=== PATIENT | female | born 1970 | race Caucasian/White ===

== ENCOUNTER 2021-08-26 12:52 | Outpatient (CLI) | payer SELFPAY ==
--- NOTE | 2021-08-27 13:16 | XRAY Report ---
PROCEDURE: Ankle 3 View LT INDICATIONS: LEFT ANKLE PAIN TECHNIQUE: 3 views of the ankle were acquired. COMPARISON: None FINDINGS: Bones: No fractures or dislocations. Ankle mortise is normally aligned. No suspicious bony lesions . Soft tissues: No tibiotalar joint effusion. Achilles tendon appears normal. IMPRESSION: Unremarkable left ankle radiographs Reviewed by: Milan Seth MD on 08/27/2021 12:15 PM [facility] Approved by: Milan Seth MD on 08/27/2021 12:15 PM [facility] Station ID: [id number]
== END 2021-08-26 23:59 | disposition home or self-care (01) ==
LOC: DI.N 12:52
PROVIDERS: ATTEND Physician Assistant Medical
DX: S93.402A Sprain of unspecified ligament of left ankle, initial encounter (principal)

== ENCOUNTER 2022-09-04 08:00 | Outpatient (CLI) | payer MEDICAID ==
--- NOTE | 2022-09-04 17:45 | XRAY Report ---
PROCEDURE: Shoulder 2 View RT INDICATIONS: R SHOULDER PX TECHNIQUE: 2 views of the shoulder were acquired. COMPARISON: None. FINDINGS: Bones: No fractures or dislocations. No suspicious bony lesions. Visualized ribs appear intact. Soft tissues: No suspicious soft tissue calcifications. Right axillary resection clips. IMPRESSION: No evidence acute bony abnormality of the right shoulder. If clinical suspicion and/or symptoms persist, further assessment with repeat plain films or advanced imaging (e.g., CT, MRI, or bone scan) may be helpful for further assessment. Reviewed by: Iker Martinez MD on 09/04/2022 5:44 PM PST Approved by: Iker Martinez MD on 09/04/2022 5:44 PM PST Station ID: [id number]
== END 2022-09-04 23:59 | disposition home or self-care (01) ==
LOC: DI.N 08:00
PROVIDERS: ATTEND Nurse Practitioner
DX: M25.511 Pain in right shoulder (principal)

== ENCOUNTER 2023-06-10 12:00 | Outpatient (CLI) | payer MEDICAID ==
[2023-06-10 18:47] LABS: BASOPHILS % (AUTO) 0.4 %; EOSINOPHILS # (AUTO) 0.3 10^3/uL (0.0-0.7); EOSINOPHILS % (AUTO) 3.1 %; HCT - HEMATOCRIT 41.9 % (37.0-47.0); HGB - HEMOGLOBIN 13.6 g/dL (12.0-16.0); LYMPHOCYTES # (AUTO) 1.8 10^3/uL (1.5-3.5); LYMPHOCYTES % (AUTO) 19.2 %; MEAN CORPUSCULAR HEMOGLOBIN 29.1 pg (27.0-31.0); MEAN CORPUSCULAR HGB CONC 32.5 g/dL (32.0-36.0); MEAN CORPUSCULAR VOLUME 89.7 fL (81.0-99.0); MEAN PLATELET VOLUME 10.1 fL (7.9-10.8); MONOCYTES # (AUTO) 0.6 10^3/uL (0.0-1.0); NEUTROPHILS # (AUTO) 6.6 10^3/uL (1.5-6.6); NEUTROPHILS % (AUTO) 70.9 %; PLT - PLATELET COUNT 321 10^3/uL (130-450); RED BLOOD COUNT 4.67 10^6/uL (4.20-5.40); RED CELL DISTRIBUTION WIDTH 12.2 % (12.0-15.0); WHITE BLOOD COUNT 9.3 x10^3/uL (4.8-10.8)
[2023-06-10 18:49] LABS: ALBUMIN 4.3 g/dL (3.2-5.5); ALBUMIN/GLOBULIN RATIO 1.6 (1.0-2.2); ALKALINE PHOSPHATASE 95 IU/L (42-121); ALT ALANINE AMINOTRANSFERASE 11 IU/L (10-60); AST ASPARTATE AMINOTRANSFERASE 16 IU/L (10-42); BUN - BLOOD UREA NITROGEN 10 mg/dL (6-20); CALCIUM 9.6 mg/dL (8.5-10.3); CARBON DIOXIDE - CO2 30 mmol/L (21-32); CHLORIDE 102 mmol/L (101-111); CHOLESTEROL 186 mg/dL; CREATININE 0.7 mg/dL (0.6-1.3); GFR - MDRD 88 (>89); GLUCOSE 113 mg/dL (74-104); HDL CHOLESTEROL 61 mg/dL; LDL CHOLESTEROL,CALCULATED 66 mg/dL; LDL/HDL RATIO 1.1 (<4.4); POTASSIUM 4.1 mmol/L (3.5-4.5); SODIUM 137 mmol/L (135-145); TRIGLYCERIDES 293 mg/dL (48-352); VLDL CHOLESTEROL 59 mg/dL
[2023-06-10 21:02] LABS: BILIRUBIN,URINE NEGATIVE (NEGATIVE); GLUCOSE, URINE (UA) NEGATIVE (NEGATIVE); KETONES,URINE (UA) NEGATIVE (NEGATIVE); LEUKOCYTE ESTERASE, URINE MODERATE (NEGATIVE); NITRITE,URINE NEGATIVE (NEGATIVE); OCCULT BLOOD,URINE MODERATE (NEGATIVE); PROTEIN,URINE NEGATIVE (NEGATIVE); UROBILINOGEN,URINE 0.2 (NORMAL) E.U./dL (NORMAL)
[2023-06-10 21:07] LABS: CLARITY,URINE HAZY (CLEAR)
[2023-06-10 21:13] LABS: BACTERIA,URINE Few /HPF (None Seen); SQUAMOUS EPITHELIAL CELL,UR NONE SEEN (<= Few)
== END 2023-06-10 12:01 | disposition home or self-care (01) ==
LOC: LAB.N 12:00
PROVIDERS: ATTEND Physician Assistant
DX: Z00.00 Encounter for general adult medical examination without abnormal findings (principal); Z13.220 Encounter for screening for lipoid disorders; Z85.3 Personal history of malignant neoplasm of breast; R30.0 Dysuria
CPT/HCPCS: 36415; 80053; 80061; 81001; 83721; 85025; 87086

== ENCOUNTER 2023-06-22 02:47 | Emergency (ER) | payer MEDICAID ==
--- NOTE | 2023-06-22 03:19 | ED Physician Documentation ---
History of Present Illness - Stated complaint Stated Complaint: ALLERGIC REACTION - Chief complaint Chief Complaint: Allergic Rx - History obtained from History obtained from: Patient - Additonal information Additional information: HPI from patient. Patient c/o pruritic hives since Saturday (4 days ago), initially on arms and chest. The hives have persisted despite taking benadryl but shift in location. Her chief concern is that since earlier this afternoon, she noticed gradual onset of chin and lower lip swelling. She denies sensation of tongue/throat swelling/constriction. She denies dyspnea , denies sensation of chest constriction. Denies wheezing, coughing. She says she has been stung by bees several times but over past few months, no more recently than 2 weeks ago. 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 - Past Surgical History Past Surgical History: Yes /ARMORED CABLE MACHINE OPERATOR: Mastectomy - Present Medications Home Medications: Ambulatory Orders Medication Instructions Recorded Confirmed Ascorbic Acid/Collagen Hydr 1 each PO DAILY 06/22/23 06/22/23 [Collagen Skin Renewal Tab] Cyanocobalamin (Vitamin B-12) 1 cap PO DAILY 06/22/23 06/22/23 [Vitamin B-12] EPINEPHrine [Epinephrine] 0.3 mg IJ ONCE PRN #2 each 06/22/23 Fexofenadine/Pseudoephedrine 1 each PO HS 06/22/23 06/22/23 [Mable-D 24 Hour Tablet] Folic Acid 1 tab PO DAILY 06/22/23 06/22/23 Magnesium 1 tab PO DAILY 06/22/23 06/22/23 predniSONE [Deltasone] 40 mg PO DAILY 4 Days #8 tablet 06/22/23 - Allergies Allergies/Adverse Reactions: Allergies Allergy/AdvReac Type Severity Reaction Status Date / Time No Known Drug Allergies Allergy Verified 06/22/23 03:03 - Social History Does the pt smoke?: No Smoking Status: Former smoker Does the pt drink ETOH?: Yes Substance Use and Type: Marijuana - Immunizations Immunizations are current?: Yes PD ED PE NORMAL - Vitals Vital signs reviewed: Yes - General General: Alert and oriented X 3, No acute distress, Well developed/nourished - HEENT HEENT: Other (mild lower lip swelling, sublte swelling of chin. no intraoral swelling (tongue, posterior o/p). ) - Respiratory Respiratory: No respiratory distress, Clear bilaterally PD ED PE EXPANDED - Derm Derm: Urticaria (bilateral abdominal flanks) Results - Vitals Vitals: Oxygen O2 Source Room air PD Medical Decision Making - ED course Complexity details: re-evaluated patient, considered differential, d/w patient ED course: presents with hives, s/o allergic reaction without apparent trigger. Given 20 mg PO famotidine, 60mg PO prednisone, and 0.15mg epinephrine IM. Patient already took benadryl this evening; arguably could redose but patient is driving home and thus instructed to take next dose of benadryl when she is home. E-prescribed prednisone and epi-pens. Return precautions discussed, advised to follow up with PCP for reevaluation. Departure - Departure Disposition: Home, Self Care Clinical Impression: Hives, Angioedema Condition: Good Instructions: ED Angioedema, ED Urticaria Follow-Up: Meenakshi Sterling PA-C [Primary Care Provider] - (3-5 days) Prescriptions: predniSONE [Deltasone] 40 mg PO DAILY 4 Days #8 tablet EPINEPHrine [Epinephrine] 0.3 mg IJ ONCE PRN #2 each PRN Reason: Anaphylaxis Comments: I have electronically submitted prescriptions for prednisone (steroid) and EpiPen (auto-injectable epinephrine to be used in case of anaphylaxis) to the [facility] in [place]. Continue to take the Benadryl per label instructions as needed for symptoms. You should also take Pepcid once per day per label instructions until your symptoms have completely resolved. The cause of your symptoms is not apparent at this time. Follow up with your primary care provider. If you have ongoing or recurrent episodes of these symptoms, you might benefit from referral to an licensed [employer] real estate appraiser. Forms: PCP List Discharge Date/Time: 06/22/23 06:40
[2023-06-22] MEDS ORDERED: FAMOTIDINE 20 MG TABLET PO STA (03:48)
[2023-06-22] MEDS ORDERED: predniSONE 20 MG TABLET PO STA (03:48)
[2023-06-22] MEDS ORDERED: EPINEPHrine 1 MG/ML AMP IM STA (03:48)
[2023-06-22 06:41] VITALS: BP 102/65; O2SAT 97
== END 2023-06-22 06:40 | disposition home or self-care (01) ==
LOC: ED 02:47
DX: T78.3XXA Angioneurotic edema, initial encounter (principal); Z79.899 Other long term (current) drug therapy; Z87.891 Personal history of nicotine dependence
CPT/HCPCS: 96372; 99283; 99284; A9270; J7512

== ENCOUNTER 2024-01-02 10:03 | Outpatient (CLI) | payer BC ==
--- NOTE | 2024-01-02 13:47 | MRI Report ---
PROCEDURE: Shoulder RT WO INDICATIONS: R SHOULDER CALCIFIC TENDINITIS TECHNIQUE: Noncontrast oblique coronal T2 fast spin echo with fat saturation, oblique sagittal T1 spin echo and T2 fast spin echo with fat saturation, axial T1 spin echo and T2 fast spin echo with fat saturation t hrough the shoulder. COMPARISON: None. FINDINGS: Image quality: Excellent. Rotator cuff: There is a low T2 signal intensity focus within the anterior, mid, posterior supraspina tus, as well as anterior infraspinatus tendon, measuring roughly 20 mm anteroposterior, indicating ca lcific tendinitis as seen by plain film. There is low-grade articular surface and intrasubstance tear ing of the anterior and mid supraspinatus tendon at the humeral insertion site. Moderate to high-grad e intrasubstance tearing of the posterior supraspinatus tendon at the muscular tendinous junction is present, measuring roughly 8 mm anteroposterior. There is low-grade intrasubstance tearing of the mid and anterior infraspinatus tendon at the humeral insertion site. Subscapularis and teres minor tendo ns are intact. No rotator cuff atrophy. Bones and bursae: No bone marrow contusions or fractures. Moderate glenohumeral and acromioclavicula r joint degeneration. The acromion demonstrates conventional anatomy, without an os acromiale. No p athologic subacromial/subdeltoid bursal fluid is present. Capsule and soft tissues: There is undercutting of the mid posterior labrum. Diffuse degenerative gle noid labral fraying is present. The long head of the biceps tendon demonstrates normal location and m orphology. The rotator interval appears normal, without fibrosis. The coracohumeral ligament is nor mal in thickness. IMPRESSION: 1. Calcific tendinitis of the rotator cuff. 2. Partial-thickness tears of the supraspinatus and infraspinatus tendons. 3. Acromioclavicular and glenohumeral joint osteoarthritis. 4. Glenoid labral tearing. Reviewed by: Lucie Lowe MD on 01/02/2024 1:46 PM PDT Approved by: Lucie Lowe MD on 01/02/2024 1:46 PM PDT Station ID: [id number]
== END 2024-01-02 10:04 | disposition home or self-care (01) ==
LOC: DI 10:03
PROVIDERS: ATTEND Physician Assistant Surgical
DX: M75.31 Calcific tendinitis of right shoulder (principal); M75.111 Incomplete rotator cuff tear or rupture of right shoulder, not specified as traumatic; M19.011 Primary osteoarthritis, right shoulder; S43.431A Superior glenoid labrum lesion of right shoulder, initial encounter

== ENCOUNTER 2024-04-23 08:04 | Outpatient (CLI) | payer BC ==
--- NOTE | 2024-04-23 11:56 | XRAY Report ---
Foot 3+V RT HISTORY: 53 years of age, PAIN IN RIGHT FOOT TECHNIQUE: Foot 3+V RT COMPARISON: None. 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 If there is russel rn for sesamoiditis, MRI should be considered. No acute fracture or dislocation. Joint spaces are well maintained. Reviewed by: Dunia Matias MD on 04/23/2024 11:55 AM PDT Approved by: Dunia Matias MD on 04/23/2024 11:55 AM PDT Station ID: [id number]
== END 2024-04-23 08:05 | disposition home or self-care (01) ==
LOC: DI.N 08:04
PROVIDERS: ATTEND Physician Assistant
DX: M79.671 Pain in right foot (principal); R93.6 Abnormal findings on diagnostic imaging of limbs